=== PATIENT | male | born 1990 | race Caucasian/White ===

== ENCOUNTER 2020-12-02 15:37 | Emergency (ER) | payer OTHER ==
[~2020-12-02] VITALS: Ht 167.6 cm; Wt 95.3 kg
[2020-12-02 15:40] VITALS: BP 136/86
--- NOTE | 2020-12-02 15:40 | NUR ---
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 AOX4, NO SOB, NO S/O ANY ACUTE DISTRESS NOTED. DENIES PAIN. PATIENT KEPT COMFORTABLE. SAFETY PRECAUTIONS IN PLACE. WILL CONTINUE TO MONITOR
--- NOTE | 2020-12-02 15:59 | NUR ---
NIHSS ASSESSMENT SCORE 0
--- NOTE | 2020-12-02 16:02 | NUR ---
Patient discharged to home in stable condition. Written and verbal after care instructions given. Patient verbalizes understanding of instruction.
== END 2020-12-02 16:03 | disposition home or self-care (01) ==
LOC: ER 15:50
DX: F45.8 Other somatoform disorders (principal)